=== PATIENT | female | born 1955 | race Caucasian/White ===

== ENCOUNTER → 2017-09-16 | Outpatient (CLI) | payer BC ==
[~2017-09-16] MED LIST: OPTIRAY 320 IV PRN
--- NOTE | 2017-09-16 14:54 | DIAGNOSTIC IMAGING REPORT ---
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 A dose lowering technique was utilized adhering to the principles of ALARA. COMPARISON STUDY: Renal ultrasound 08/06/2017. FINDINGS: Trace bilateral pleural effusions with subsegmental dependent bibasilar opacities favoring compressive atelectasis. No pneumatosis or pneumoperitoneum. Imaged inferior cardiac chambers are unremarkable. Mildly contracted gallbladder. The liver, spleen, pancreas and adrenal glands are unremarkable. There is no intrahepatic delayed ductal dilation. Trace perinephric fluid about the right kidney. Bilateral kidneys and ureters are otherwise unremarkable. 3 mm calcification medial to the left kidney suggests vascular calcification. No ureteral calculi or obstructive uropathy. Decompressed or bladder. Surgical clip projects adjacent to the bilateral adnexa suggesting prior fallopian tube occlusion. Uterus and adnexa are otherwise unremarkable. Mild calcification about the abdominal aorta without aneurysm. IVC appears unremarkable. Mildly prominent inguinal lymph nodes. No bowel obstruction or focal bowel wall thickening identified. Terminal ileum is within normal limits. The appendix is not definitively seen. No secondary signs of acute appendicitis. Moderate body wall edema with trace pelvic ascites. Bones appear to be intact. No suspicious lytic or blastic bony lesions. IMPRESSION: 1. Fluid overload manifested by trace pleural effusions, moderate body wall edema and trace pelvic ascites. 2. No bowel obstruction or focal bowel wall thickening. 3. No pneumatosis or pneumoperitoneum. Electronically signed by: Michael Tapia M.D. 09/16/2017 2:52 PM Dictated Date/Time: 09/16/2017 2:47 PM
== END | disposition home or self-care (01) ==
LOC: C.CTS 12:24
PROVIDERS: ATTEND Internal Medicine Nephrology
DX: N04.9 Nephrotic syndrome with unspecified morphologic changes (principal); J90 Pleural effusion, not elsewhere classified

== ENCOUNTER → 2017-10-14 | Outpatient (CLI) | payer BC ==
[2017-10-14 10:00] LABS: BASO % 0.1 %; BASO ABS # 0.02 K/uL (0-0.2); HEMATOCRIT 43.9 % (37-47); HEMOGLOBIN 14.6 g/dL (12.0-16.0); IG# 0.08 K/uL (0.00-0.02); LYMPH % 9.6 %; LYMPH ABS # 1.59 K/uL (1.2-3.4); MEAN CORPUSCULAR HEMOGLOBIN 31.6 pg (25-34); MEAN CORPUSCULAR HGB CONC 33.3 g/dl (32-36); MEAN PLATELET VOLUME 11.7 fL (7.4-10.4); MONO % 6.5 %; MONO ABS # 1.08 K/uL (0.11-0.59); NEUT % 83.3 %; NEUT ABS # 13.77 K/uL (1.4-6.5); PLATELET COUNT 246 K/uL (130-400); RED CELL DISTRIBUTION WIDTH CV 14.4 % (11.5-14.5); RED CELL DISTRIBUTION WIDTH SD 49.8 fL (36.4-46.3); WHITE BLOOD COUNT 16.54 K/uL (4.8-10.8)
[2017-10-14 10:16] LABS: ALBUMIN 3.2 gm/dl (3.4-5.0); BLOOD UREA NITROGEN 48 mg/dl (7-18); CALCIUM 8.8 mg/dl (8.5-10.1); CARBON DIOXIDE 28 mmol/L (21-32); CREATININE 1.35 mg/dl (0.60-1.20); GLUCOSE 84 mg/dl (70-99); PHOSPHORUS 2.3 mg/dl (2.5-4.9); POTASSIUM 4.1 mmol/L (3.5-5.1); SODIUM 135 mmol/L (136-145)
== END | disposition home or self-care (01) ==
LOC: C.LAB1850 08:29
PROVIDERS: ATTEND Internal Medicine Nephrology
DX: N04.9 Nephrotic syndrome with unspecified morphologic changes (principal)